=== PATIENT | female | born 1965 | race Caucasian/White ===

== ENCOUNTER 2020-10-08 12:14 | Emergency (ER) | payer OTHER, SELFPAY ==
[2020-10-08 12:16] VITALS: BP 184/104; PULSE 103; RESP 17; TEMP 36.7; O2SAT 96; BMI 33.5
--- NOTE | 2020-10-08 12:36 | RAD_ITS ---
STUDY: X-RAY - LEFT WRIST REASON FOR EXAM: Female, 55 years old. Pain TECHNIQUE: 3 view(s) of the wrist were obtained. COMPARISON: None. FINDINGS: Normal visualized distal radius and ulna. Normal radiocarpal articulation. Normal distal radioulnar articulation. Normal carpal bones. Normal carpal articulations. Normal carpometacarpal articulation of the thumb. Normal second through fifth carpometacarpal articulations. Normal visualized metacarpal bones. The soft tissue structures are unremarkable. RAD/Wrist min 3 Views IMPRESSION: No demonstrated acute osseous injury. Electronically Signed: Ish Lin MD at 13:06 EDT Tel , Service support ,
--- NOTE | 2020-10-08 12:40 | RAD_ITS ---
STUDY: X-RAY - RIGHT ELBOW REASON FOR EXAM: Female, 55 years old. Injury and pain TECHNIQUE: 4 view(s) of the elbow. COMPARISON: None. FINDINGS: Normal visualized humerus, radius and ulna. Normal radiocapitellar and ulnotrochlear articulations. Soft tissue swelling of the medial posterior aspect of the elbow. RAD/Elbow min 3 Views IMPRESSION: Soft tissue swelling. No demonstrated acute osseous injury. Electronically Signed: Ish Lin MD at 13:02 EDT Tel , Service support ,
--- NOTE | 2020-10-08 12:47 | ED.VIS.GEN ---
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 She notes swelling posteriorly that has improved. She notes a click now when she flexes and extends at the right elbow. She is right-handed. She also states that 2 months ago she began having pain in the left lateral wrist. She notes a burning-like pain. 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 She has been wearing a cock-up splint. She has not had an evaluation for this. Past Medical History - Allergies and Home Meds Allergies/Adverse Reactions: Allergies No Known Allergies Allergy (Verified 10/08/20 12:15) Primary Care Physician: Royal Harris III, MD [Primary Care Provider] - Surgical History: noncontributory Smoking Status: Never smoker Alcohol: None Drugs: None Review of Systems General: Denies: Chills, Fever, Sweats Eyes: Denies: Visual changes - bilaterally, Diplopia ENT: Denies: Rhinorrhea, Sore throat Cardiovascular: Denies: Chest pain, Palpitations Respiratory: Denies: Dyspnea, Cough, Dyspnea on exertion Gastrointestinal: Denies: Abdominal pain, Nausea, Vomiting, Diarrhea, Melena, Hematochezia Genitourinary: Denies: Dysuria, Hematuria, Frequency Musculoskeletal: Reports: Swelling, Extremity Pain. Denies: Back pain Skin: Denies: Rash, Wounds Neurological: Denies: Headache, Weakness, Numbness Physical Exam Vital Signs/Narrative: Vital Signs Temp Pulse Resp BP Pulse Ox 10/08/20 12:16 98.1 F 103 H 17 184/104 H 96 Inital Vital Signs reviewed: Yes General: Well nourished, Well developed, No Acute Distress Head: Normocephalic, Atraumatic Eyes: Perrl, EOMI ENT: Moist mucous membranes, No rhinorrhea Neck: Supple, Nontender Cardiovascular: Regular rate, Regular rhythm, No murmurs Respiratory: No distress, CTA bilaterally, Chest nontender Abdomen: Soft, Nontender, Nondistended, Normal bowel sounds Back: Nontender, Normal Inspection Extremities: Tenderness - Positive Jovon test on the left. Neurovascular intact. No muscle wasting. Right elbow show some mild swelling about the olecranon. Full range of motion. No obvious deformity. Skin: Normal color, No rash Neurological: Alert, Oriented x3, Cranial nerves II-XII grossly intact, Normal Strength, Normal Sensation Psychological: Normal affect, Normal Mood Diagnostic/Tx/Re-eval - Medical Decision Making My impression of the plain films of the right elbow and left wrist are no acute fracture. ED Disposition - Plan for ED Patient: Disposition: Home or Assisted Living Diagnosis: De Quervain's tenosynovitis, left, Contusion of right elbow Instructions: ED De Quervain Tenosynovitis, ED Contusion, Upper Extremity Referrals: [facility] [NON-STAFF] -
[2020-10-08 13:25] VITALS: BP 160/88; PULSE 106; RESP 16; O2SAT 94
== END 2020-10-08 13:25 | disposition home or self-care (01) ==
LOC: ED 13:01
PROVIDERS: Emergency Provider Emergency Medicine; PCP Family Medicine
DX: S50.01XA Contusion of right elbow, initial encounter (principal); W20.1XXA Struck by object due to collapse of building, initial encounter; M65.4 Radial styloid tenosynovitis [de Quervain]
CPT/HCPCS: 73080; 73110; 99283

== ENCOUNTER 2023-11-05 01:02 | Emergency (ER) | payer OTHER, SELFPAY ==
[2023-11-05 01:03] VITALS: BP 163/83; PULSE 103; RESP 16; TEMP 36.3; O2SAT 99; BMI 33.3
[2023-11-05] MEDS: Diphth,Pertuss(Acell),Tet Vac 0.5 ML Vial IM (01:23)
[2023-11-05] MEDS: Lidocaine 2% /Epi 1:100 (20ml) 20 ML VIAL INFILT (01:23)
--- NOTE | 2023-11-05 01:46 | EDS_ITS ---
HPI History of Present Illness Chief Complaint: Laceration Informant: patient Narrative Narrative: Patient is a 58-year-old female who has a past medical history of hypertension hyperlipidemia. 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 She does states she is right-hand dominant. She denies any numbness tingling or weakness. She denies any other injury. She is unsure of her tetanus status. She states she is concerned the area may need sutured and secondary to this comes in for evaluation. [facility] Medical History (Updated 11/05/23 @ 02:[address] Scott Watt, ) Anxiety Depression Hyperlipidemia Hypertension Home Medications NK 02/10/21 [History Last Taken Unknown] Allergy/AdvReac Type Severity Reaction Status Date / Time No Known Allergies Allergy Verified 02/10/21 09:17 Social History Smoking Status: Never smoker ROS ROS ED Constitutional Constitutional ED: Denies chills or fever(s) ENT ENT ED: Denies sore throat Cardiovascular Cardiovascular: Denies chest pain Respiratory/Chest Respiratory/Chest: Denies cough or dyspnea Gastrointestinal Gastrointestinal: Denies abdominal pain, diarrhea, nausea or vomiting Genitourinary Genitourinary ED: Denies dysuria Musculoskeletal Musculoskeletal: Reports other Details: Positive right hand pain/injury Integumentary Reports other Details: Positive right hand laceration Neurologic Neurologic: Denies headache(s), paresthesias or weakness Hematologic/Lymphatic Hematologic/Lymphatic: Denies easy bleeding or easy bruising EXAM Physical Exam Const Vital Signs: 11/05/23 01:03 11/05/23 01:57 Temperature 97.4 F L 97.4 F L Temperature Source Temporal Pulse Rate 103 H 70 Respiratory Rate 16 18 Blood Pressure 163/83 H 124/78 H Blood Pressure Mean 109 93 Pulse Ox 99 99 Oxygen Delivery Method Room Air Positive well nourished and well developed General Appearance ED: well developed HEENT HEENT Narrative: Normocephalic atraumatic Eyes PERRL and EOMs intact bilaterally Neck supple Resp normal respiratory effort and clear to auscultation bilaterally Cardio regular rate and regular rhythm Extremity Extremity Narrative: Right upper extremity is neurovascularly intact; AIN/PIN are intact and normal. Active range of motion is slightly decreased secondary to pain. Along the do rsal aspect of the first webspace there is a 2 cm subcutaneous layer deep laceration that is linear in nature with minimal ooze of blood and no foreign body. No ligamentous or tendon injury noted. No bony deformity or joint effusion. Remainder of the exam is normal Neuro oriented x3, CN's II-XII intact bilaterally and no sensory deficits noted Sensorium / Orientation: alert Psych mental status grossly normal Skin Skin Narrative: Laceration to the right hand as documented above MDM MDM MDM Narrative Medical decision making narrative: Patient presented to the ER hypertensive but has a past medical history of this. She stained a simple laceration to her right hand and did not have history or exam findings concerning for bony injury or ligamentous or tendon injury. Therefore I felt no need for imaging or laboratory studies. Physical exam revealed no signs of foreign body. Her tetanus status was updated and as there is low concern for retained foreign body or fracture there is no need for imaging. The wound was closed as documented below and as this is overall clean wound there is no need for prophylactic antibiotics and she is otherwise safe for discharge Patient had a right hand cleaned with chlorhexidine. The laceration/area was anesthetized with 3 mL of 2% lidocaine with epinephrine and local fashion. The area was copiously irrigated with normal saline. Then five 3-0 Ethilon sutures were placed in simple interrupted fashion. This brought the wound together well with good approximation. Patient tolerated procedure well without complication History & Record Review Discussion w/independent historian: Patient Discharge Plan Triage Chief Complaint: Laceration Other Complaint: Upper Extremity Injury ED Provider: Scott Watt Dx/Rx/DC Orders Clinical Impression: Laceration of right hand, Hypertension Instructions: ED Laceration, Hand: All Closures Prescriptions: No Action NK Primary Care Provider: Care Physician,No Primary Referrals: [facility] [Group of Physicians] - Care Physician,No Primary [Primary Care Provider] - Activity Restrictions/Additional Instructions: Please follow-up with occupational health or return to the ER or see your family doctor in 7 to 10 days for suture removal. If you have any further concerns or worsening of symptoms please return to the ER for repeat evaluation Disposition Disposition: Home, Self Care Discharge Date/Time: 11/05/23 02:02
[2023-11-05 01:57] VITALS: BP 124/78; PULSE 70; RESP 18; TEMP 36.3; O2SAT 99
== END 2023-11-05 02:02 | disposition home or self-care (01) ==
PROVIDERS: Emergency Provider Emergency Medicine; Visit Provider Emergency Medicine
DX: S61.411A Laceration without foreign body of right hand, initial encounter (principal); Y99.0 Civilian activity done for income or pay; I10 Essential (primary) hypertension; E78.5 Hyperlipidemia, unspecified; W30.89XA Contact with other specified agricultural machinery, initial encounter; Y93.89 Activity, other specified; Y92.89 Other specified places as the place of occurrence of the external cause; Z23 Encounter for immunization
CPT/HCPCS: 12001; 90471; 90715; 99283